=== PATIENT | female | born 2000 | race Caucasian/White ===

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

== ENCOUNTER 2021-10-03 01:08 | Emergency (ER) | payer BC, MEDICAID, SELFPAY ==
[2021-10-03 01:31] VITALS: BMI 28.5
[2021-10-03 01:36] VITALS: BP 140/102; PULSE 88; RESP 16; TEMP 36.8; O2SAT 98
--- NOTE | 2021-10-03 01:56 | ED_ITS ---
HPI - Neck Pain/Injury General: Chief Complaint: Neck Pain/Injury Stated Complaint: Neck and left arm pain Time Seen by Provider: 10/03/21 01:50 History of Present Illness: 21-year-old female comes in today with left side neck pain radiating into her left arm. Patient has increased pain with movement. Patient appears well. Patient appears in moderate pain. Patient reports no chronic medical problems. Review of Systems General: Reports: 10 or more systems reviewed and unremarkable except in HPI and below Const: Denies: fever(s) Card: Denies: chest pain Resp: Denies: dyspnea Musc: Reports: neck pain PFS ED PFSH: Medical History (Updated 10/03/21 @ 02:04 by KENNY Hickey) examination following delivery Family History (Updated 10/09/19 @ 10:04 by Mraa Jaramillo RN) Grandfather CAD (coronary artery disease) Hypertension Diabetes maternal Grandmother Breast cancer maternal Denies family history of Clotting disorder Hyperlipidemia Anesthesia complication Bleeding disorder Stroke Social History (Updated 10/09/19 @ 10:05 by Mara Jaramillo RN) Smoking and tobacco status: never smoked Second hand smoke exposure: Yes Alcohol intake: unknown Adopted: No Caregiver/support person: Yes Lives independently: No Housing: House Marital status: Single (lives with boyfriend) Number of children: 1 (delivered at 23 2/7 weeks gestation) Number of grandchildren: 0 service: No Current occupational exposures/hazards: No History of recent travel: No Sexually active: Yes Angelina/Yazidi: Mandaeism Special angelina needs: No Agree to transfusion: Yes Financial difficulty paying for basics: Somewhat Hard Female Reproductive History: Date of last menstrual period: 10/03/21 Physical Exam Const: COMMON NORMALS: alert HENMT: COMMON NORMALS: normocephalic HEAD & SCALP: normocephalic Neck/C-Spine: CERVICAL SPINE: No Cervical spine tenderness and Yes Paracervical muscle tenderness left Resp: COMMON NORMALS: normal respiratory effort Cardio: COMMON NORMALS: regular rate RATE: regular rate Extremity: NARRATIVE EXTREMITY EXAM: Normal range of motion of the extremities, increase neck pain with movement of the left shoulder, tenderness and tightness and left trapezius Neuro: SENSORIUM/ORIENTATION: Yes alert Skin: COMMON NORMALS: no rashes or lesions noted GENERAL SKIN EXAM: no rashes or lesions noted Course Vital Signs: Vital signs: Vital Signs Temperature 98.3 F 10/03/21 01:36 Pulse Rate 88 10/03/21 01:36 Respiratory Rate 16 10/03/21 01:36 Blood Pressure 140/102 10/03/21 01:36 Pulse Oximetry 98 10/03/21 01:36 MDM - Neck Pain/Injury Medical Decision Making 21-year-old female comes in today with complaints of left side neck pain radiating into her arm. Pain is increased with movement of the neck and shoulder. Patient has muscle tightness and tenderness to the left trapezius and left paracervical spine muscles. Differential diagnosis includes intervertebral disc disease, facet arthropathy, cervical strain. Patient denies any injury. Reviewed exam with patient with recommendations for a medication for pain and inflammation. Patient was written a prescription for diclofenac 75 twice daily #20, and hydrocodone for severe pain. Encourage plenty of fluids and follow-up with primary care for recheck. Patient reported understanding and agreed to plan. Discharge Plan Discharge Patient Disposition: Home Clinical Impression: Cervical radiculopathy Condition: Stable Prescriptions: New diclofenac sodium 75 mg tablet,delayed release (DR/EC) 75 mg PO BID Qty: 20 0RF hydrocodone-acetaminophen 5-325 mg tablet 1 tab PO Q8H PRN (Reason: pain) Qty: 6 0RF No Action Vitamin 27 mg iron- 800 mcg Tablet 1 tab PO DAILY 0RF acetaminophen 325 mg Tablet 650 mg PO Q6H PRN (Reason: Mild Pain or Temp >100.4) Qty: 60 0RF ibuprofen 800 mg Tablet 800 mg PO TID Qty: 60 0RF docusate sodium 100 mg Capsule 100 mg PO BID Qty: 60 0RF ferrous sulfate 325 mg (65 mg iron) Tablet,Delayed Release (Dr/Ec) 325 mg PO BIDWM Qty: 60 0RF Discharge Orders: Discharge ED (Routine); Ordered 10/03/21 Ordered By: Pedro Luis Brush Discharge Diet: Usual diet Discharge Activity: Increase activity as tolerated Patient Instructions: Acute Neck Pain (ED), Opioid Safety Activity Restrictions/Additional Instructions: Activity as tolerated. Gentle stretching and range of motion exercises of the neck. Use ice or heat to the area for further comfort. Drink plenty of water with medication. Take diclofenac 75 mg 1 tablet twice a day for the next 10 days for pain and inflammation. Use acetaminophen for further control of pain. Use hydrocodone for severe pain. Follow-up with primary care in 3 to 5 days for recheck. Return to ER as needed for new concerns. Coding Level of Care Code ED Photographic Technician for Shiv Cruz
[2021-10-03] MEDS: dexamethasone 10 mg/mL INJ IM (02:05)
[2021-10-03] MEDS: orphenadrine 30 mg/mL Inj 2 mL 60 MG IM (02:10)
[2021-10-03] MEDS: ketorolac 30 mg/mL INJ IM (02:10)
[2021-10-03 02:20] VITALS: BP 139/92; PULSE 80; RESP 18; TEMP 36.7; O2SAT 99
== END 2021-10-03 04:15 | disposition home or self-care (01) ==
PROVIDERS: Emergency Provider Nurse Practitioner Family
DX: M54.12 Radiculopathy, cervical region (principal); Z77.22 Contact with and (suspected) exposure to environmental tobacco smoke (acute) (chronic)
CPT/HCPCS: 96372; 99284; J1100; J1885; J2360

== ENCOUNTER 2022-04-16 02:13 | Emergency (ER) | payer BC, MEDICAID, SELFPAY ==
[2022-04-16 02:15] VITALS: BP 131/109; PULSE 91; RESP 14; TEMP 36.6; O2SAT 100; BMI 23.5
--- NOTE | 2022-04-16 02:20 | W.ED.SKABFB ---
HPI - Skin/Abscess/Foreign Bdy General: Chief complaint: Skin/Abscess/Foreign Body Stated complaint: rash Time Seen by Provider: 04/16/22 02:14 Source: patient and EMS Mode of arrival: EMS Limitations: no limitations History of Present Illness: 22-year-old female had a hive-like rash started to her trunk and arms roughly an hour ago states it is very pruritic in nature she denies any shortness of breath denies any problem swallowing she denies any rash like this in the past. Associated symptoms: Deny chills, fever(s), nausea or vomiting Review of Systems Const: Denies: fever(s), chills, body aches or change in appetite Eyes: Denies: blurry vision or eye discomfort ENMT: Denies: throat pain or dental pain Card: Denies: chest pain Resp: Denies: dyspnea GI: Denies: abdominal pain, nausea, vomiting or diarrhea : Denies: dysuria Musc: Denies: neck pain or back pain Skin/Breast: Reports: rash Neuro: Denies: headache(s) Psych: Denies: depression Villa/Lymph: Denies: easy bruising All/Imm: Reports: urticaria PFSH ED PFSH: Medical History examination following delivery Family History Grandfather CAD (coronary artery disease) Hypertension Diabetes maternal Grandmother Breast cancer maternal Denies family history of Clotting disorder Hyperlipidemia Anesthesia complication Bleeding disorder Stroke Social History Smoking and tobacco status: never smoked Second hand smoke exposure: Yes Alcohol intake: unknown Adopted: No Caregiver/support person: Yes Lives independently: No Housing: House Marital status: Single Number of children: 1 (delivered at 23 2/7 weeks gestation) Number of grandchildren: 0 service: No Current occupational exposures/hazards: No History of recent travel: No Sexually active: Yes Angelina/Cheondoism: Anglican Special angelina needs: No Agree to transfusion: Yes Financial difficulty paying for basics: Somewhat Hard Female Reproductive History: Date of last menstrual period: 10/03/21 Physical Exam Const: COMMON NORMALS: no acute distress, patient oriented x3 and healthy appearing HENMT: COMMON NORMALS: normocephalic and atraumatic HEAD & SCALP: normocephalic and atraumatic Eye: COMMON NORMALS: Equal, round and reactive pupils present and EOMs intact bilaterally PUPIL: Yes Equal, round and reactive pupils present Neck/C-Spine: COMMON NORMALS: full ROM and supple Chest: COMMONS NORMALS: normal inspection of the chest and normal palpation of entire chest wall Resp: COMMON NORMALS: normal respiratory effort, No retractions, No use of accessory muscles and clear to auscultation bilaterally AUSCULTATION: clear to auscultation bilaterally Cardio: COMMON NORMALS: regular rate, regular rhythm and No murmurs present (Cardio) RATE: regular rate RHYTHM: regular rhythm GI: COMMON NORMALS: Normal to inspection, nondistended, normoactive bowel sounds present, Soft to palpation, non-tender and no masses PALPATION: Yes Soft to palpation Extremity: COMMON NORMALS: normal to inspection and full ROM Neuro: COMMON NORMALS: patient oriented x3, moves all extremities and no focal motor deficits Psych: COMMON NORMALS: mental status grossly normal, Normal thought process present and cooperative THOUGHT PROCESS: Normal thought process present Skin: COMMON NORMALS: no wounds NARRATIVE SKIN EXAM: Urticarial rash to trunk and arms Course Vital Signs: Vital signs: Vital Signs Temperature 97.8 F 04/16/22 02:15 Pulse Rate 100 04/16/22 03:09 Respiratory Rate 16 04/16/22 03:09 Blood Pressure 139/87 04/16/22 03:09 Pulse Oximetry 100 04/16/22 03:09 Oxygen Delivery Me thod Nasal Cannula 04/16/22 03:09 MDM - Skin/Abscess/Foreign Bdy Medicial Decision Making Patient presents here with rash urticarial rash in nature patient's much improved here after steroids and Benadryl will prescribe prednisone for home patient is to follow-up PCP and return if worsening. Discharge Plan Discharge Patient Disposition: Home Clinical Impression: Urticaria Condition: Stable Prescriptions: New prednisone 50 mg tablet 50 mg PO DAILY Qty: 5 0RF No Action Vitamin 27 mg iron- 800 mcg Tablet 1 tab PO DAILY acetaminophen 325 mg Tablet 650 mg PO Q6H PRN (Reason: Mild Pain or Temp >100.4) Qty: 60 0RF ibuprofen 800 mg Tablet 800 mg PO TID Qty: 60 0RF docusate sodium 100 mg Capsule 100 mg PO BID Qty: 60 0RF ferrous sulfate 325 mg (65 mg iron) Tablet,Delayed Release (Dr/Ec) 325 mg PO BIDWM Qty: 60 0RF diclofenac sodium 75 mg tablet,delayed release (DR/EC) 75 mg PO BID Qty: 20 0RF hydrocodone-acetaminophen 5-325 mg tablet 1 tab PO Q8H PRN (Reason: pain) Qty: 6 0RF Discharge Orders: Discharge ED (Routine); Ordered 04/16/22 Ordered By: Mirian Ba Discharge Diet: Advance as tolerated Discharge Activity: Resume usual activity Patient Instructions: Urticaria (ED) Coding Level of Care Code ED Supervisor Mechanic Boilermaking for Shiv Fwd Exam Comprehensive
[2022-04-16 02:40] VITALS: PULSE 100; RESP 16; O2SAT 100
[2022-04-16] MEDS: diphenhydrAMINE 50 mg/mL SDV 1mL IVP (02:50)
[2022-04-16] MEDS: famotidine 20 mg/2 mL INJ 40 MG IVP (03:00)
[2022-04-16 03:09] VITALS: BP 139/87; PULSE 100; RESP 16; O2SAT 100
[2022-04-16 03:31] VITALS: BP 139/87; PULSE 92; O2SAT 100
== END 2022-04-16 03:35 | disposition home or self-care (01) ==
PROVIDERS: Emergency Provider Emergency Medicine
DX: L50.9 Urticaria, unspecified (principal); Z77.22 Contact with and (suspected) exposure to environmental tobacco smoke (acute) (chronic)
CPT/HCPCS: 96374; 96375; 99284; J1200; J2930; J3490

== ENCOUNTER 2022-04-17 07:04 | Emergency (ER) | payer BC, MEDICAID, SELFPAY ==
[2022-04-17 07:08] VITALS: BP 151/87; PULSE 116; RESP 14; TEMP 36.6; O2SAT 99; BMI 23.5
--- NOTE | 2022-04-17 07:13 | W.ED.SKABFB ---
HPI - Skin/Abscess/Foreign Bdy General: Chief complaint: Allergic Reaction Stated complaint: Rash Time Seen by Provider: 04/17/22 07:07 Source: patient Mode of arrival: ambulatory Limitations: no limitations History of Present Illness: Patient is a 22-year-old female who presents to ED today via EMS for evaluation of hives. Patient tells me she broke out in a pruritic rash approximately 2 days ago. She was seen at our facility yesterday and administered IV Benadryl, Pepcid, and Solu-Medrol with almost complete relief of her itching/rash. She was discharged home but states today the rash has returned. She was given a prescription for steroids however has not filled this. Her last dose of Benadryl at home was at 10 PM yesterday. She denies any new environmental, household, chemical exposures that could have triggered her reaction. No new medications/food exposures. She has no previous history of urticaria. Patient has no complaints of SOB/difficulty breathing or tongue/mouth/lip swelling. MD complaint: rash Onset (ago): day(s) Location: generalized Severity: moderate Quality: pruritic Relieving factors: medication (IV benadryl/steroids from last ED visit) Exacerbating factors: none Context: none Associated symptoms: Reports itching; Deny chills, fever(s), nausea or vomiting Treatments prior to arrival: Benadryl and corticosteroid Review of Systems Const: Denies: fever(s), chills, body aches, fatigue or malaise Eyes: Denies: change in vision Card: Denies: chest pain, palpitations, swelling of feet/ankles or lightheadedness Resp: Denies: dyspnea, productive cough, non-productive cough or wheezing GI: Denies: abdominal pain, nausea, vomiting or diarrhea : Denies: flank pain, dysuria or hematuria Musc: Denies: neck pain, back pain, extremity pain or joint pain Skin/Breast: Reports: rash and pruritus Neuro: Denies: headache(s), numbness in extremities, weakness in extremities, sensory changes or dizziness [facility] ED PFSH: Medical History examination following delivery Family History Grandfather CAD (coronary artery disease) Hypertension Diabetes maternal Grandmother Breast cancer maternal Denies family history of Clotting disorder Hyperlipidemia Anesthesia complication Bleeding disorder Stroke Social History Smoking and tobacco status: never smoked Second hand smoke exposure: Yes Alcohol intake: unknown Adopted: No Caregiver/support person: Yes Lives independently: No Housing: House Marital status: Single Number of children: 1 (delivered at 23 2/7 weeks gestation) Number of grandchildren: 0 service: No Current occupational exposures/hazards: No History of recent travel: No Sexually active: Yes Angelina/Hinduism: Baptist Special angelina needs: No Agree to transfusion: Yes Financial difficulty paying for basics: Somewhat Hard Female Reproductive History: Date of last menstrual period: 10/03/21 Physical Exam Const: COMMON NORMALS: no acute distress, average body habitus, patient oriented x3, no limitations, healthy appearing, alert and well nourished GENERAL APPEARANCE: cooperative and anxious ORIENTATION/CONSCIOUSNESS: Yes awake, Yes oriented to person, Yes oriented to place and Yes oriented to time HENMT: COMMON NORMALS: normocephalic and atraumatic HEAD & SCALP: normal to inspection, normocephalic and atraumatic MOUTH: Normal oral and palatal mucosa present, lip normal and tongue normal THROAT: posterior oropharynx normal, tonsils normal and uvula midline Eye: GENERAL EYE: appearance normal, both eyes and all related structures Neck/C-Spine: COMMON NORMALS: full ROM GENERAL: Yes normal visual inspection Resp: COMMON NORMALS: normal respiratory effort and clear to auscultation bilaterally AUSCULTATION: clear to auscultation bilaterally Cardio: COMMON NORMALS: regular rhythm RATE: tachycardic RHYTHM: regular rhythm GI: COMMON NORMALS: Normal to inspection, nondistended, normoactive bowel sounds present, Soft to palpation and non-tender PALPATION: Yes Soft to palpation Extremity: COMMON NORMALS: normal to inspection GENERAL: Yes normal exam except as noted Neuro: MARIA DEL ROSARIO COMA SCALE: document [facility] findings Maria Del Rosario coma scale eye opening: Spontaneous [place] coma scale verbal response: Orientated [place] coma scale motor response: Obey commands [place] coma scale total score: 15 COMMON NORMALS: patient oriented x3, CN's II-XII intact bilaterally, moves all extremities, no focal motor deficits, no sensory deficits noted and gait normal SENSORIUM/ORIENTATION: Yes alert, Yes oriented to person, Yes oriented to place and Yes oriented to time Skin: RASHES: rashes noted diffuse urticaria affecting bilateral UE/LEs and trunk Course Vital Signs: Vital signs: Vital Signs Temperature 97.9 F 04/17/22 07:08 Pulse Rate 116 H 04/17/22 07:08 Respiratory Rate 14 04/17/22 07:08 Blood Pressure 151/87 04/17/22 07:08 Pulse Oximetry 99 04/17/22 07:08 Oxygen Delivery Me thod 04/17/22 07:08 MDM - Skin/Abscess/Foreign Bdy Medicial Decision Making Pruritus is vastly improved and rash has substantially faded after IV Benadryl/Solu-Medrol/Pepcid. Patient states she feels comfortable going home at this time. She has not filled the prednisone prescription she got from last ED visit. I will change this to 7-day taper versus the 5-day burst pack she was prescribed. Recommend she continue Benadryl every 4-6 hours. I would like her to follow up with PCP in 2-3 days if rash persists or does not seem to be improving. Return to ED precautions given. Discharge Plan Discharge Patient Disposition: Home Clinical Impression: Urticaria Condition: Stable Prescriptions: New prednisone 10 mg tablet 10 mg PO DAILY 10 Days Qty: 24 0RF Rx Instructions: 5 tabs on days 1-2, 4 tabs on days 3-4, 3 tabs on day 5, 2 tabs on day 6, 1 tab on day 7 Discontinued prednisone 50 mg tablet 50 mg PO DAILY Qty: 5 0RF No Action Vitamin 27 mg iron- 800 mcg Tablet 1 tab PO DAILY acetaminophen 325 mg Tablet 650 mg PO Q6H PRN (Reason: Mild Pain or Temp >100.4) Qty: 60 0RF ibuprofen 800 mg Tablet 800 mg PO TID Qty: 60 0RF docusate sodium 100 mg Capsule 100 mg PO BID Qty: 60 0RF ferrous sulfate 325 mg (65 mg iron) Tablet,Delayed Release (Dr/Ec) 325 mg PO BIDWM Qty: 60 0RF diclofenac sodium 75 mg tablet,delayed release (DR/EC) 75 mg PO BID Qty: 20 0RF hydrocodone-acetaminophen 5-325 mg tablet 1 tab PO Q8H PRN (Reason: pain) Qty: 6 0RF Discharge Orders: Discharge ED (Routine); Ordered 04/17/22 Ordered By: Odalys Gomez Patient Instructions: Urticaria (ED) Coding Level of Care Code ED Sales Account Leader for Juliang Fwd Exam Comprehensive
[2022-04-17] MEDS: famotidine 20 mg/2 mL INJ 40 MG IVP (07:30)
[2022-04-17] MEDS: diphenhydrAMINE 50 mg/mL SDV 1mL IVP (07:30)
[2022-04-17 09:14] VITALS: BP 136/82; PULSE 102; RESP 14; O2SAT 98
== END 2022-04-17 09:15 | disposition home or self-care (01) ==
PROVIDERS: Emergency Provider Physician Assistant
DX: L50.9 Urticaria, unspecified (principal); Z77.22 Contact with and (suspected) exposure to environmental tobacco smoke (acute) (chronic)
CPT/HCPCS: 96374; 96375; 99284; J1200; J2930; J3490